=== PATIENT | female | born 1975 | race Hispanic/Latino ===

== ENCOUNTER 2017-05-19 19:10 | Emergency (ER) | payer OTHER ==
[~2017-05-19] VITALS: Ht 167.6 cm; Wt 74.8 kg
[2017-05-19 19:10] VITALS: BP 135/73
[2017-05-19] MEDS ORDERED: LORazepam Inj 2mg/ml 1ml IV ONE (19:45)
[2017-05-19] MEDS ORDERED: ALPRAZOLAM0.25 MG ORAL (20:43)
[2017-05-19 21:05] VITALS: BP 124/62
[2017-05-19 21:09] VITALS: BP 124/62
--- NOTE | 2017-05-21 09:31 | Emergency Room Report ---
History of Present Illness General Chief Complaint: General Complaint Source: Patient, EMS Present Illness HPI 42-year-old female presents ED for evaluation. Per EMS patient called 911, crying and in distress. 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 Upon arrival patient is crying. Patient denies any prior history of anxiety. Denies any other symptoms. Denies chest pain or shortness of breath. Denies abdominal pain. No aggravating relieving factors. Denies any other symptoms Allergies: Coded Allergies: UNABLE TO ASSESS (Unverified , 05/19/17) Patient History Past Medical History: none Past Surgical History: none Pertinent Family History: none Social History: Denies: smoking, alcohol use, drug use Last Menstrual Period: unk Now: No Immunizations: UTD Reviewed Nursing Documentation: PMH: Agreed, PSxH: Agreed Review of Systems All Other Systems: negative except mentioned in HPI Physical Exam Vital Signs Date Time Temp Pulse Resp B/P (MAP) Pulse Ox O2 Delivery O2 Flow Rate FiO2 05/19/17 19:10 98.6 88 16 135/73 Room Air 05/19/17 19:11 100 Sp02 EP Interpretation: reviewed, normal General Appearance: no apparent distress, alert, GCS 15, non-toxic Head: normocephalic, atraumatic Eyes: bilateral eye normal inspection, bilateral eye PERRL ENT: hearing grossly normal, normal pharynx, no angioedema, normal voice Neck: full range of motion, supple/symm/no masses Respiratory: chest non-tender, lungs clear, normal breath sounds, speaking full sentences Cardiovascular #1: regular rate, rhythm, no edema Cardiovascular #2: 2+ carotid (R), 2+ carotid (L), 2+ radial (R), 2+ radial (L) , 2+ dorsalis pedis (R), 2+ dorsalis pedis (L) Gastrointestinal: normal bowel sounds, non tender, soft, non-distended, no guarding, no rebound Rectal: deferred Genitourinary: normal inspection, no CVA tenderness Musculoskeletal: back normal, gait/station normal, normal range of motion, non- tender Neurologic: alert, oriented x3, responsive, motor strength/tone normal, sensory intact, speech normal Psychiatric: judgement/insight normal, memory normal, no suicidal/homicidal ideation, anxious Reflexes: 3+ bicep (R), 3+ bicep (L), 3+ tricep (R), 3+ tricep (L), 3+ knee (R) , 3+ knee (L) Skin: normal color, no rash, warm/dry, well hydrated Lymphatic: no adenopathy Medical Decision Making Diagnostic Impression: Primary Impression: Anxiety ER Course Hospital Course 42-year-old female presents ED, and distress, crying after argument with her boss Differential diagnoses include: ETOH, dehydration, anxiety Clinical course Patient placed on stretcher. 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 After initial history and physical I ordered IV ativan Upon reassessment patient is observed feeling better. Interacting appropriately. Patient had no other symptomatology. I believe this is purely anxiety reaction due to stressful situation. Patient states she been feeling more and more stress at work and does not know to handle at Will prescribe her with low-dose anxiety medication. Recommended followup with PMD/psychiatry as outpatient I. I feel this is a highly complex case requiring extensive working including EKG/Rhythm strip, Xray/CT/US, Blood/urine lab work, repeat exams while in ED, and administration of strong opiates/narcotics for pain control, admission to hospital or close patient follow up. Diagnosis - anxiety Stable and discharged to home with Rx Xanax. Followup with PMD. Return to ED if symptoms recur or worse Last Vital Signs Date Time Temp Pulse Resp B/P (MAP) Pulse Ox O2 Delivery O2 Flow Rate FiO2 05/19/17 21:09 99.5 77 24 124/62 100 Room Air Status: improved Disposition: HOME, SELF-CARE Condition: Stable Scripts Alprazolam* (XANAX*) 0.25 Mg Tablet 0.25 MG ORAL TID Y for For Anxiety, #10 TAB Prov: LANDY DOWNS M.D. 05/19/17 Referrals: [facility] (PCP) Patient Instructions: Panic Attacks, [id number] LANDY DOWNS M.D. May 21, 2017 09:31
== END 2017-05-19 21:09 | disposition home or self-care (01) ==
LOC: EDUNIT# 19:10 → EDBD 19:10 → EMR 19:40
DX: F41.9 Anxiety disorder, unspecified (principal); R45.83 Excessive crying of child, adolescent or adult
CPT/HCPCS: 96374; 99284